=== PATIENT | female | born 1960 | race African-American/Black ===

== ENCOUNTER 2017-02-22 08:52 | Emergency (ER) | payer OTHER ==
[~2017-02-22] VITALS: Ht 172.7 cm; Wt 68.0 kg
[2017-02-22 08:53] VITALS: BP 114/81
[2017-02-22 09:22] LABS: URINE BLOOD 3+ (Negative); URINE COLOR BROWN; URINE GLUCOSE-RANDOM* NEGATIVE (Negative); URINE KETONES NEGATIVE (Negative); URINE NITRITE POSITIVE (Negative); URINE PROTEIN (DIPSTICK) 3+ (Negative); URINE SPECIFIC GRAVITY 1.025 (1.003-1.035)
[2017-02-22 09:29] LABS: ICTOTEST (BILI CONFIRMATORY) Negative (Negative); URINE BILIRUBIN NEGATIVE (Negative)
[2017-02-22 09:37] LABS: CASTS None Seen /LPF (None Seen); CRYSTALS None Seen /LPF (None Seen); SQUAMOUS 0-3 Few /LPF (0-3); URINE RBC >20 Many /HPF (0-2); URINE WBC >25 Many /HPF (0-5); WBC CLUMPS Packed (None Seen)
[2017-02-22] MEDS ORDERED: BACTRIM DS TAB1 EACH PO (09:38)
== END 2017-02-22 10:03 | disposition home or self-care (01) ==
LOC: ER 08:52
PROVIDERS: Emergency Medicine
DX: N39.0 Urinary tract infection, site not specified (principal); Z87.440 Personal history of urinary (tract) infections

== ENCOUNTER 2017-03-23 13:30 | Emergency (ER) | payer OTHER ==
[~2017-03-23] VITALS: Ht 172.7 cm; Wt 68.0 kg
[2017-03-23 13:30] VITALS: BP 132/81
[~2017-03-23 13:30] MED LIST: BACTRIM DS TAB1 EACH PO
[2017-03-23] MEDS ORDERED: UNICOMPLEX M TA1 TA1 PO (13:38)
== END 2017-03-23 14:17 | disposition home or self-care (01) ==
LOC: ER 13:30
DX: L02.212 Cutaneous abscess of back [any part, except buttock and flank] (principal); L72.3 Sebaceous cyst; Z87.440 Personal history of urinary (tract) infections

== ENCOUNTER → 2019-05-02 | Outpatient (CLI) | payer OTHER ==
[~2019-05-02] MED LIST changes: +UNICOMPLEX M TA1 TA1 PO
== END ==
LOC: MRI 09:56
DX: M51.36 Other intervertebral disc degeneration, lumbar region (principal); M51.26 Other intervertebral disc displacement, lumbar region; M51.37 Other intervertebral disc degeneration, lumbosacral region; M12.88 Other specific arthropathies, not elsewhere classified, other specified site

== ENCOUNTER → 2019-08-14 | Outpatient (CLI) | payer OTHER | LOC: CAT 10:58 | DX: K57.30 Diverticulosis of large intestine without perforation or abscess without bleeding (principal) ==

== ENCOUNTER → 2019-11-19 | Outpatient (CLI) | payer OTHER | LOC: CAT 07:01 | PROVIDERS: ATTEND Nurse Practitioner | DX: K57.30 Diverticulosis of large intestine without perforation or abscess without bleeding (principal); K56.41 Fecal impaction; K92.89 Other specified diseases of the digestive system; I70.0 Atherosclerosis of aorta; I70.8 Atherosclerosis of other arteries ==

== ENCOUNTER → 2020-03-14 | Outpatient (CLI) | payer OTHER | LOC: LAB 09:57 | PROVIDERS: ATTEND Specialist | DX: Z01.812 Encounter for preprocedural laboratory examination (principal); Z20.828 Contact with and (suspected) exposure to other viral communicable diseases ==

== ENCOUNTER → 2020-03-19 | Outpatient (CLI) | payer OTHER ==
[~2020-03-19] VITALS: Ht 172.7 cm; Wt 59.0 kg
[~2020-03-19] MED LIST changes: +CRANBERRY200 MG PO; +FLEXERIL PO; +IBUPROFEN 800800 M1 PO; +LORCET 5-325 M1 EACH PO; +VITAMIN B-121000 MC2 PO; +VITAMIN C500 M2 PO
--- NOTE | ~2020-03-19 | P ---
[facility] [place] [address] PROCEDURE REPORT Name: HELENE SMITH Room #: REG KEYA Yazmin#: [id number] Admission: 03/19/20 Attend Phys: Jarett Dykes Discharge: Date of : 58 Report #: [id number] THIS REPORT FOR: cc: Sabas Restrepo,Jarett Cherry MD ~ CC: Jarett Restrepo DO DATE OF SERVICE: 03/19/2020 PROCEDURE PERFORMED: Colonoscopy with polypectomies. HISTORY OF PRESENT ILLNESS: The patient is a 59-year-old female who presents today for screening colonoscopy. She has a family history of colon cancer in a grandmother and her father. She has had several attempted colonoscopies in the past with poor prep. She has got a history of chronic constipation, history of diverticulosis apparently. She denies any symptoms at this time. Plan is for colonoscopy. DESCRIPTION OF PROCEDURE: The risks and benefits of the procedure were explained to the patient, those risks including but not limited to bleeding, perforation and the risk of sedation. She understood these risks and gave informed consent. Sedation was given using propofol per anesthesia. Next, a digital rectal exam was initially performed, which was normal. Next, using a standard Olympus colonoscope, the scope was placed in the patient's anus and advanced under direct vision to the cecum. The overall prep was good in most areas. There were areas with semi-liquid stool. Multiple washings and aspirations were performed, but the prep was adequate. The cecum was normal. On the ileocecal valve, there was a 1.2 cm sessile polyp. This was removed in a piecemeal fashion by snare cautery. The ascending colon was normal. In the transverse colon, there were 2 polyps noted, the largest was 8 mm, the smaller was 5, both removed by snare cautery. The descending colon was normal. A few scattered diverticula were noted in the sigmoid colon. Also noted was a 6 mm sessile polyp removed by snare cautery. In the rectum, a 5 mm sessile polyp also removed by snare cautery. On retroflexion, no abnormalities were noted. The scope was then withdrawn and the procedure terminated. The patient tolerated the procedure well. IMPRESSION: 1. Multiple polyps as described above. 2. Sigmoid diverticulosis. 3. Otherwise, normal colonoscopy. RECOMMENDATIONS: [address] [address] PROCEDURE REPORT Name: HELENE SMITH Room #: REG KEYA Arce#: [id number] Admission: 03/19/20 Attend Phys: Jarett Dykes Discharge: Date of : 58 Report #: [id number] 1. Await biopsy results. 2. Repeat colonoscopy in 3 years. Thank you for allowing me to participate in her care. By: [id number] Jarett Gaytan MD /roni
--- NOTE | 2020-03-21 16:06 | PATH ---
[facility] [place] [address] [place] [address] PATHOLOGY RPT PROCEDURE Name: JULIANA MORALES Room #: REG [facility] M.R.#: [id number] Admission: 03/19/20 Date of : 58 Discharge: Report #: [id number] Path Case #: [id number] [facility] Accession Number: [id number] . 01 Material submitted: . PART A: ileo-cecal valve - POLYP AT ILEO-CECAL VALVE PART B: colon - POLYP AT TRANSVERSE COLON X2. Modifiers: transverse PART C: colon - POLYP AT SIGMOID COLON. Modifiers: sigmoid PART D: rectum - POLYP AT RECTUM . 01 Clinical history: . HX OF COLON CANCER . 02 Diagnosis: A. Polyp, at ileocecal valve, endoscopic biopsy: - Tubular adenoma. - Negative for high grade dysplasia. . B. Polyp x2, transverse colon, endoscopic biopsy: - Tubular adenoma x2. - Negative for high grade dysplasia. . C. Polyp, sigmoid colon, endoscopic biopsy: - Hyperplastic polyp. - Negative for dysplasia. . D. Polyp, at rectum, endoscopic biopsy: - Hyperplastic polyp. - Negative for dysplasia. . (IUV:mml; 03/21/2020) QLM 03/21/2020 1258 Local . 02 Electronically signed: . Elsy Hare MD, Pathologist NPI- [id number] . 01 Gross description: . A. Received in formalin labeled "Juliana Morales, polyp at ileocecal valve" are multiple parker-brown soft tissue fragments measuring in aggregate 1.4 x 1.0 x 0.3 cm. The specimen is submitted entirely in A1. . B. Received in formalin labeled "Juliana Morales, polyp at transverse colon x2" are two parker-brown soft tissue fragments measuring in aggregate 0.8 x 0.7 x 0.3 cm. The specimen is submitted entirely in B1. . C. Received in formalin labeled "Juliana Morales, polyp at sigmoid colon" [address] [address] PATHOLOGY RPT PROCEDURE Name: JULIANA MORALES Room #: REG [facility].#: [id number] Admission: 03/19/20 Date of : 58 Discharge: Report #: [id number] Path Case #: [id number] is a parker-brown soft tissue fragment measuring 0.5 x 0.5 x 0.3 cm. The specimen is submitted entirely in C1. . D. Received in formalin labeled "[place], Juliana, polyp at rectum" is a parker-brown soft tissue fragment measuring 0.6 x 0.5 x 0.3 cm. The specimen is submitted entirely in D1. ([facility]; 03/20/2020) [facility] 03/21/2020 1256 Local . 02 Pathologist provided ICD-10: D12.0, D12.3, K63.5, K62.1 . 02 CPT . 626805, 071216, 865584, 510626 Specimen Comment: A courtesy copy of this report has been sent to [phone] Specimen Comment: Report sent to Performed at: [address], [place] [id number] MD Jeovanny Rosales MD Phone: [phone] Performed at: [address] [id number] MD Elsy Hare MD Phone: [phone]
== END | disposition home or self-care (01) ==
LOC: GI 06:54
PROVIDERS: ATTEND Specialist
DX: Z12.11 Encounter for screening for malignant neoplasm of colon (principal); K57.30 Diverticulosis of large intestine without perforation or abscess without bleeding; K63.89 Other specified diseases of intestine; Z79.899 Other long term (current) drug therapy; Z90.710 Acquired absence of both cervix and uterus; Z98.890 Other specified postprocedural states; Z87.440 Personal history of urinary (tract) infections
CPT/HCPCS: 62110; 62900

== ENCOUNTER → 2020-07-31 | Outpatient (CLI) | payer OTHER | LOC: SJCVC 10:11 | PROVIDERS: ATTEND Internal Medicine Cardiovascular Disease | DX: I49.8 Other specified cardiac arrhythmias (principal); R07.9 Chest pain, unspecified; R06.00 Dyspnea, unspecified; R53.83 Other fatigue; R42 Dizziness and giddiness; R56.9 Unspecified convulsions; Z79.891 Long term (current) use of opiate analgesic; Z79.1 Long term (current) use of non-steroidal anti-inflammatories (NSAID); Z79.899 Other long term (current) drug therapy; Z87.891 Personal history of nicotine dependence; F12.920 Cannabis use, unspecified with intoxication, uncomplicated; Z90.710 Acquired absence of both cervix and uterus; Z98.890 Other specified postprocedural states ==

== ENCOUNTER → 2020-08-20 | Outpatient (CLI) | payer OTHER | LOC: SJCVCIMAG 08-04 11:32 | PROVIDERS: ATTEND Internal Medicine Cardiovascular Disease | DX: R07.9 Chest pain, unspecified (principal); R00.2 Palpitations; R56.9 Unspecified convulsions; R53.83 Other fatigue; F12.90 Cannabis use, unspecified, uncomplicated; Z79.899 Other long term (current) drug therapy; Z87.891 Personal history of nicotine dependence ==

== ENCOUNTER → 2020-08-28 | Outpatient (CLI) | payer OTHER ==
--- NOTE | ~2020-08-28 | EEG ---
[facility] [place] [address] [place] [address] ELECTROENCEPHALOGRAM Name: HELENE SMITH Room #: REG KEYA M.R.#: [id number] Admission: 08/28/20 Attend Phys: Radha Ferguson DO Discharge: Date of : 58 Report #: [id number] THIS REPORT FOR: //name// DATE OF SERVICE: 08/28/2020 This patient is being evaluated for the possibility of seizure. EEG was done by placing the electrode by standard 10-20 system of electrode placement. The background activity in this patient's EEG is about 10 Hz and 40 microvolt. It is a symmetrical activity. Photic stimulation is unremarkable. The patient became drowsy and that is associated with bilateral slowing and vertex sharp waves. Throughout the record, no active epileptiform activity was noticed. IMPRESSION: This patient's EEG is within normal limit. No active epileptiform activity was noticed, but it might be mentioned that EEG can be normal in a patient with seizure disorder. Thank you very much for this referral. By: [id number] Daniel Drummond MD /nt
== END ==
LOC: NEURO 07:59
PROVIDERS: ATTEND Psychiatry & Neurology Neurology
DX: R25.3 Fasciculation (principal); R51.9 Headache, unspecified; R56.9 Unspecified convulsions

== ENCOUNTER → 2021-05-12 | Outpatient (CLI) | payer OTHER ==
[2021-05-12 09:28] LABS: CREATININE 0.8 mg/dL (0.6-1.0)
== END ==
LOC: CAT 08:25
PROVIDERS: ATTEND Family Medicine
DX: N28.1 Cyst of kidney, acquired (principal); I70.0 Atherosclerosis of aorta; M41.85 Other forms of scoliosis, thoracolumbar region